=== PATIENT | female | born 1955 | race African-American/Black ===

== ENCOUNTER 2016-06-20 17:47 | Emergency (ER) | payer SELFPAY ==
[2016-06-20] MEDS ORDERED: ONDANSETRON 4 MG TAB.RAPDIS PO ONE (17:52)
--- NOTE | 2016-06-20 17:52 | ER Document Report ---
ED Medical Screen (RME) - General Stated Complaint: HEADACHE Time seen by provider: 17:52 Mode of Arrival: Ambulatory Information source: Patient Notes: 60-year-old female here to get for refill of her blood pressure medication which is nifedipine 30 mg she does not have a PCP and her prescriptions are coming from the emergency department. I recommended since she does not have a primary care doctor to get some lab work and treat her headache with Tylenol. The patient is refusing to get blood work which is her choice. She states that this headache is always due to high blood pressure. She ran out of meds 2 days ago. She has a throbbing pressure headache that started on Sunday after an episode of blurred vision. The headache in the posterior occiput has been persistent level 4-1/2-5. TRAVEL OUTSIDE OF THE [place] IN LAST 30 DAYS: No - Related Data Allergies/Adverse Reactions: No Known Allergies Allergy (Verified 05/01/16 16:28) Past Medical History - Past Medical History Cardiac Medical History: Reports: Hx Hypertension Neurological Medical History: Reports: Hx Seizures Endocrine Medical History: Reports: Hx Diabetes Mellitus Type 2 Musculoskeltal Medical History: Reports Hx Arthritis Past Surgical History: Reports: Hx Abdominal Surgery, Hx Hysterectomy - Immunizations Hx Diphtheria, Pertussis, Tetanus Vaccination: No Physical Exam - Vital signs Vitals: Temp Pulse Resp BP Pulse Ox 98.2 F 70 16 168/93 H 99 06/20/16 17:59 06/20/16 17:59 06/20/16 17:59 06/20/16 17:59 06/20/16 17:59 Course - Vital Signs Vital signs: Temp Pulse Resp BP Pulse Ox 98.2 F 70 16 168/93 H 99 06/20/16 17:59 06/20/16 17:59 06/20/16 17:59 06/20/16 17:59 06/20/16 17:59
[2016-06-20] MEDS ORDERED: ACETAMINOPHEN 325 MG TABLET PO ONE (18:09)
--- NOTE | 2016-06-20 19:50 | ER Document Report ---
ED General - General Chief Complaint: Headache Stated Complaint: HEADACHE Mode of Arrival: Ambulatory Notes: Patient says that she's having a terrible headache which has been going on since Sunday morning. She says she gets headaches like this one every time she runs out of her blood pressure medicines which she did after taking her last dose of Adalat 30 mg extended release Sunday night. She is here to get a refill of that medication because she doesn't have a local provider. She's had this identical headache several times in the past when she's run out of her blood pressure medicines. She has not had any other symptoms such as change in vision, nausea or vomiting, chest pain, short of breath, fever, etc. TRAVEL OUTSIDE OF THE [place] IN LAST 30 DAYS: No - Related Data Allergies/Adverse Reactions: No Known Allergies Allergy (Verified 06/20/16 18:40) Past Medical History - General Information source: Patient - Social History Smoking Status: Never Smoker Cigarette use (# per day): No Frequency of alcohol use: None Drug Abuse: None Family History: Reviewed & Not Pertinent Patient has suicidal ideation: No Patient has homicidal ideation: No - Past Medical History Cardiac Medical History: Reports: Hx Hypertension Neurological Medical History: Reports: Hx Seizures Endocrine Medical History: Reports: Hx Diabetes Mellitus Type 2 Musculoskeltal Medical History: Reports Hx Arthritis Past Surgical History: Reports: Hx Abdominal Surgery, Hx Hysterectomy - Immunizations Hx Diphtheria, Pertussis, Tetanus Vaccination: No Review of Systems - Review of Systems Notes: REVIEW OF SYSTEMS: CONSTITUTIONAL : Denies fever. EENT: Denies eye, ear, nose or mouth or throat pain or other symptoms. CARDIOVASCULAR: Denies chest pain. RESPIRATORY: Denies cough, chest congestion, or shortness of breath. GASTROINTESTINAL: Denies abdominal pain or nausea, vomiting, or diarrhea. GENITOURINARY: Denies difficulty or painful urinating, urinary frequency, blood in urine. MUSCULOSKELETAL: Denies back or neck pain. Denies joint pain or swelling. SKIN: Denies rash or skin lesions. NEUROLOGICAL: Denies LOC or altered mental status. Denies sensory loss or motor deficits. PSYCHIATRIC: Denies anxiety or stress. Denies depression. ALL OTHER SYSTEMS REVIEWED AND NEGATIVE. Physical Exam - Vital signs Vitals: Temp Pulse Resp BP Pulse Ox 98.2 F 70 16 168/93 H 99 06/20/16 17:59 06/20/16 17:59 06/20/16 17:59 06/20/16 17:59 06/20/16 17:59 Interpretation: Normal, Hypertensive - Mild - Notes Notes: PHYSICAL EXAMINATION: GENERAL: Well-appearing, in no acute distress. Patient does not appear to be in any distress whatsoever. A pleasant individual who is quite certain that her headache is her customary headache that she gets when she runs out of her blood pressure medicine and her blood pressure begins to creep upward. She declines allowing us to draw any lab studies to check her renal function. She only wants a prescription for her blood pressure medication. HEAD: Atraumatic, normocephalic. EYES: Pupils equal round and reactive to light, extraocular movements intact. ENT: oropharynx clear without exudates. Moist mucous membranes. NECK: Normal range of motion, supple. LUNGS: Breath sounds clear and equal bilaterally. HEART: Regular rate and rhythm without murmurs. ABDOMEN: Soft, nontender. No guarding or rebound. NEUROLOGICAL: Normal speech, normal gait. Normal sensory, motor, and reflex exams. Awake, alert, and oriented x3. Cranial nerves normal. PSYCH: Normal mood, normal affect. SKIN: Warm, dry, no rashes. Course - Vital Signs Vital signs: Temp Pulse Resp BP Pulse Ox 97.8 F 72 16 173/94 H 98 06/20/16 19:56 06/20/16 19:56 06/20/16 17:59 06/20/16 19:56 06/20/16 19:56 Discharge - Discharge Clinical Impression: Hypertension Qualifiers: Hypertension type: essential hypertension Qualified Code(s): I10 - Essential ( primary) hypertension Condition: Stable Disposition: HOME, SELF-CARE Additional Instructions: HIGH BLOOD PRESSURE REQUIRING TREATMENT: Your blood pressure is high. This is called "hypertension." Today's reading was 168/93 (normal is less than 140/90). Your history and exam suggest that this is not a temporary problem. You need treatment of your blood pressure. If left untreated, high blood pressure greatly increases your risk of heart attack and stroke. Please don't ignore this problem. If you have blood pressure medicine but aren't using it regularly, start taking it again. Some simple things you can do to help are: Get some aerobic exercise for at least 20 minutes on a daily basis. (See your doctor before beginning any new exercise program.) Eat a low-fat diet. Lose excess weight. Avoid salty foods and avoid adding salt to any of the foods you eat. Avoid diet pills, decongestants, "energizing" herbs, and other medicines that elevate blood pressure. There are many different medicines that treat blood pressure. If your medication causes unpleasant side effects, call your doctor. There are others you can try. Treating hypertension is a life-long investment in your health. CALCIUM CHANNEL BLOCKERS: A medication of the calcium channel lb type has been prescribed for you. Examples of this type of medicine are Adalat, Calan, Isoptin, Procardia, and Cardizem. These medicines have a variety of uses, including prevention of angina attacks, treatment of blood pressure, regulation of certain heart rhythm problems, and prevention of migraine headaches. Calcium channel blockers work by interfering with the flow of calcium in cell membranes. This results in dilation of blood vessels, and slowing of electrical conduction in the heart. A slight dizziness (due to a fall in blood pressure) may occur with the first dose, and sometimes even with later doses. This may make you prone to dizziness if you stand up suddenly. Call the doctor if lightheadedness is severe, or if you develop palpitations, shortness of breath, or any other new or alarming symptoms. FOLLOW-UP CARE: If you have been referred to a physician for follow-up care, call the physician s office for an appointment as you were instructed or within the next two days. If you experience worsening or a significant change in your symptoms, notify the physician immediately or return to the Emergency Department at any time for re-evaluation. You need to get established with a local primary care physician to provide you prescriptions for your blood pressure medicines on a regular basis. I would recommend you call the [facility] tomorrow morning and see if you qualify to be seen there and they can see you on a regular basis and adjust her medications if needed. You will find contact information for the [facility] elsewhere in these discharge instructions. Prescriptions: Nifedipine [Adalat cc] 30 mg PO DAILY #30 tablet.er Referrals: [facility] [Provider Group] - Follow up in 1 month
[2016-06-20 20:01] VITALS: BP 173/94
== END 2016-06-20 19:58 | disposition home or self-care (01) ==
LOC: ER 17:47
DX: R51 Headache (principal); I10 Essential (primary) hypertension; E11.9 Type 2 diabetes mellitus without complications; Z90.710 Acquired absence of both cervix and uterus
CPT/HCPCS: 99283

== ENCOUNTER 2016-12-27 14:30 | Emergency (ER) | payer SELFPAY ==
[2016-12-27 14:42] VITALS: BP 150/97
--- NOTE | 2016-12-27 15:41 | ER Document Report ---
ED Medical Screen (RME) - General Chief Complaint: Blood Pressure Problem Stated Complaint: BLOOD PRESSURE CONCERNS Time Seen by Provider: 12/27/16 15:41 Mode of Arrival: Ambulatory Information source: Patient Notes: 61 yo hypertensive "minor CT", cardiac arrythmia, non smoker, female comes to the ER because of intermittent headache posterior occiput for 2.5 days, 3/5 now , dizziness when she tries to do anythiing in the house for 2 days and blurred vision for 2 days, both eyes. She states that both of these symptoms are because she ran out of BP medications. No chest pain or SOB. Lots of fatique. Pt is refusing to have any workup and labs, she is adament that she only wants refill on her antihypertensives. No PCP in this area. Always gets refills in the ER. TRAVEL OUTSIDE OF THE [place] IN LAST 30 DAYS: No - Related Data Allergies/Adverse Reactions: No Known Allergies Allergy (Verified 12/27/16 15:38) Past Medical History - Past Medical History Cardiac Medical History: Reports: Hx Hypertension Neurological Medical History: Reports: Hx Seizures Endocrine Medical History: Reports: Hx Diabetes Mellitus Type 2 Renal/ Medical History: Denies: Hx Peritoneal Dialysis Musculoskeltal Medical History: Reports Hx Arthritis Past Surgical History: Reports: Hx Abdominal Surgery, Hx Hysterectomy - Immunizations Hx Diphtheria, Pertussis, Tetanus Vaccination: No Physical Exam - Vital signs Vitals: Temp Pulse Resp BP Pulse Ox 98.2 F 76 16 150/97 H 98 12/27/16 14:39 12/27/16 14:39 12/27/16 14:39 12/27/16 14:39 12/27/16 14:39 Course - Vital Signs Vital signs: Temp Pulse Resp BP Pulse Ox 98.2 F 76 16 150/97 H 98 12/27/16 14:40 12/27/16 14:40 12/27/16 14:40 12/27/16 14:40 12/27/16 14:40
--- NOTE | 2016-12-27 16:41 | ER Document Report ---
ED Blood Pressure Problem - General Chief Complaint: Blood Pressure Problem Stated Complaint: BLOOD PRESSURE CONCERNS Time Seen by Provider: 12/27/16 15:41 Mode of Arrival: Ambulatory Information source: Patient Notes: Patient is a 61-year-old female with a history of hypertension who is just here today for blood pressure medicine refill. Patient denies any chest pain, shortness of breath, headache, blurred vision, lightheadedness at this time, states that she sometimes gets lightheaded when her blood pressure goes up but is not having any symptoms now. She is on vacation with her daughter for 2 months here and needs blood pressure medication as she has been out for 2 days. TRAVEL OUTSIDE OF THE [place] IN LAST 30 DAYS: No - Related Data Allergies/Adverse Reactions: No Known Allergies Allergy (Verified 12/27/16 15:38) Past Medical History - General Information source: Patient - Social History Smoking Status: Unknown if Ever Smoked Family History: Reviewed & Not Pertinent Patient has suicidal ideation: No Patient has homicidal ideation: No - Past Medical History Cardiac Medical History: Reports: Hx Hypertension Neurological Medical History: Reports: Hx Seizures Endocrine Medical History: Reports: Hx Diabetes Mellitus Type 2 Renal/ Medical History: Denies: Hx Peritoneal Dialysis Musculoskeltal Medical History: Reports Hx Arthritis Past Surgical History: Reports: Hx Abdominal Surgery, Hx Hysterectomy - Immunizations Hx Diphtheria, Pertussis, Tetanus Vaccination: No Review of Systems - Review of Systems Constitutional: No symptoms reported EENT: No symptoms reported Cardiovascular: See HPI Respiratory: No symptoms reported Gastrointestinal: No symptoms reported Genitourinary: No symptoms reported Female Genitourinary: No symptoms reported Musculoskeletal: No symptoms reported Skin: No symptoms reported Hematologic/Lymphatic: No symptoms reported Neurological/Psychological: No symptoms reported Physical Exam - Vital signs Vitals: Temp Pulse Resp BP Pulse Ox 98.2 F 76 16 150/97 H 98 12/27/16 14:39 12/27/16 14:39 12/27/16 14:39 12/27/16 14:39 12/27/16 14:39 - Notes Notes: PHYSICAL EXAMINATION: GENERAL: Well-appearing and in no acute distress. HEAD: Atraumatic, normocephalic. EYES: Pupils equal round and reactive to light, extraocular movements intact, sclera anicteric, conjunctiva are normal. ENT: ear canals without erythema or foreign body, TMs pearly britton with good bony landmarks, nares patent, oropharynx clear without exudates. Moist mucous membranes. NECK: Normal range of motion, supple without lymphadenopathy LUNGS: CTAB and equal. No wheezes rales or rhonchi. HEART: Regular rate and rhythm without murmurs ABDOMEN: Soft, no tenderness. No guarding, no rebound BACK: no vertebral tenderness, normal ROM GI/: no CVA tenderness EXTREMITIES: Normal range of motion, no pitting edema. No cyanosis. NEUROLOGICAL: Cranial nerves grossly intact. Normal sensory/motor exams. PSYCH: Normal mood, normal affect. SKIN: Warm, Dry, normal turgor, no rashes or lesions noted Course - Vital Signs Vital signs: Temp Pulse Resp BP Pulse Ox 98.2 F 76 16 150/97 H 98 12/27/16 14:40 12/27/16 14:40 12/27/16 14:40 12/27/16 14:40 12/27/16 14:40 Discharge - Discharge Clinical Impression: Hypertension Qualifiers: Hypertension type: unspecified Qualified Code(s): I10 - Essential (primary) hypertension Condition: Stable Disposition: HOME, SELF-CARE Additional Instructions: Return immediately for any new or worsening symptoms. Follow up with primary care provider, call tomorrow to make followup appointment. Prescriptions: Nifedipine [Adalat cc] 30 mg PO QHS #30 tablet.er
== END 2016-12-27 16:47 | disposition home or self-care (01) ==
LOC: ER 14:30
DX: I10 Essential (primary) hypertension (principal)
CPT/HCPCS: 99281

== ENCOUNTER 2017-04-05 15:20 | Emergency (ER) | payer SELFPAY ==
[2017-04-05 15:27] VITALS: BP 176/87
--- NOTE | 2017-04-05 15:43 | ER Document Report ---
ED Blood Pressure Problem - General Chief Complaint: High Blood Pressure Stated Complaint: BLOOD PRESSURE ISSUES Time Seen by Provider: 04/05/17 15:29 TRAVEL OUTSIDE OF THE [place] IN LAST 30 DAYS: No - HPI Patient complains to provider of: High blood pressure Notes: Patient is coming in today for refill of her blood pressure medication. Patient states she still does not have a primary care physician although she has been directed to the outpatient clinic in [facility] multiple times here patient states she comes to the ER to have her medications filled. Patient otherwise has no complaints upon asking that we refill her blood pressure medication patient is also requesting a refill of antibiotic Pen-Vee K due to recurrent dental pain. Patient states no dental pain at this time however she does have issues and will like to have the antibiotic refilled just in case". Denies fever chills nausea vomiting chest pain abdominal pain patient looks otherwise well no signs of obvious distress. - Related Data Allergies/Adverse Reactions: No Known Allergies Allergy (Verified 04/05/17 15:26) Past Medical History - Social History Smoking Status: Never Smoker Chew tobacco use (# tins/day): No Frequency of alcohol use: None Drug Abuse: None Family History: Reviewed & Not Pertinent Patient has suicidal ideation: No Patient has homicidal ideation: No - Past Medical History Cardiac Medical History: Reports: Hx Hypertension Neurological Medical History: Reports: Hx Seizures Endocrine Medical History: Reports: Hx Diabetes Mellitus Type 2 Renal/ Medical History: Denies: Hx Peritoneal Dialysis Musculoskeltal Medical History: Reports Hx Arthritis Past Surgical History: Reports: Hx Abdominal Surgery, Hx Hysterectomy - Immunizations Hx Diphtheria, Pertussis, Tetanus Vaccination: No Review of Systems - Review of Systems Constitutional: Other - Hypertension EENT: No symptoms reported Cardiovascular: No symptoms reported Respiratory: No symptoms reported Gastrointestinal: No symptoms reported Genitourinary: No symptoms reported Female Genitourinary: No symptoms reported Musculoskeletal: No symptoms reported Skin: No symptoms reported Hematologic/Lymphatic: No symptoms reported Neurological/Psychological: No symptoms reported Physical Exam - Vital signs Vitals: Temp Pulse Resp BP Pulse Ox 98.0 F 78 18 176/87 H 100 04/05/17 15:26 04/05/17 15:26 04/05/17 15:26 04/05/17 15:26 04/05/17 15:26 Interpretation: Hypertensive - General General appearance: Appears well, Alert - HEENT Head: Normocephalic, Atraumatic Eyes: Normal Conjunctiva: Normal Cornea: Normal Pupils: PERRL Sinus: Normal Nasal: Normal Mouth/Lips: Normal Mucous membranes: Normal Neck: Normal Notes: Diffuse dental caries with no signs of gingival cellulitis or abscess formation. - Respiratory Respiratory status: No respiratory distress Chest status: Nontender Breath sounds: Normal Chest palpation: Normal - Cardiovascular Rhythm: Regular Heart sounds: Normal auscultation Murmur: No - Abdominal Inspection: Normal Distension: No distension Bowel sounds: Normal Tenderness: Nontender Organomegaly: No organomegaly - Back Back: Normal, Nontender - Extremities General upper extremity: Normal inspection, Nontender, Normal color, Normal ROM , Normal temperature General lower extremity: Normal inspection, Nontender, Normal color, Normal ROM , Normal temperature, Normal weight bearing. No: Maxim's sign - Neurological Neuro grossly intact: Yes Cognition: Normal Orientation: AAOx4 Sheridan Coma Scale Eye Opening: Spontaneous Christel Coma Scale Verbal: Oriented Christel Coma Scale Motor: Obeys Commands Christel Coma Scale Total: 15 Speech: Normal Motor strength normal: LUE, RUE, LLE, RLE Sensory: Normal - Psychological Associated symptoms: Normal affect, Normal mood - Skin Skin Temperature: Warm Skin Moisture: Dry Skin Color: Normal Course - Re-evaluation Re-evalutation: 04/05/17 17:00 Patient coming in for refill of her blood pressure medication. Again educated patient need to have a primary care physician. Explained to the patient that she does not seem to have a need for an antibiotic at this time as I do not see any signs of infection. Patient states understanding will discharge home. Patient's information was given to the medical social consultant for follow-up - Vital Signs Vital signs: Temp Pulse Resp BP Pulse Ox 98.0 F 78 18 176/87 H 100 04/05/17 15:26 04/05/17 15:26 04/05/17 15:26 04/05/17 15:26 04/05/17 15:26 Discharge - Discharge Clinical Impression: Medication refill, Poor dental hygiene HTN (hypertension) Qualifiers: Hypertension type: essential hypertension Qualified Code(s): I10 - Essential ( primary) hypertension Condition: Good Disposition: HOME, SELF-CARE Instructions: High Blood Pressure, Requiring Treatment ([facility]), High Blood Pressure ([facility]), Dentist Additional Instructions: Take your medication as prescribed cleared answer your phone as that I will have our medical social consultant contact you so that we can establish you primary care. Prescriptions: Nifedipine [Adalat cc] 30 mg PO DAILY #30 tablet.er
== END 2017-04-05 15:40 | disposition home or self-care (01) ==
LOC: ER 15:20
DX: Z76.0 Encounter for issue of repeat prescription (principal); I10 Essential (primary) hypertension; K02.9 Dental caries, unspecified; E11.9 Type 2 diabetes mellitus without complications
CPT/HCPCS: 99281